=== PATIENT | female | born 2000 | race Two or more races ===

== ENCOUNTER 2025-09-15 15:39 | Outpatient (AMB) | payer BC, SELFPAY ==
--- NOTE | 2025-09-15 15:42 | PD.GSCLVISIT ---
Vital Signs - [facility] 09/15/25 15:47 Height 1.6 m Height Method Measured Weight 83.943 kg Weight Measurement Method Standing Scale BMI 32.8 BP 112/49 L Blood Pressure Source Automatic Cuff Blood Pressure Location Left Upper Arm Position Sitting Respiration 18 Pulse 80 Pulse Source Monitor Temp 97.9 F Temp Source Temporal Artery Scan Pulse Oximetry (%) 98 Oxygen Delivery Method Room Air Med/Allergies Allergies & Medications Allergies Penicillins Allergy (Verified 09/15/25 15:48) Medication Reconciliation No Known Home Medications 09/15/25 [History Confirmed 09/15/25] MA Intake Visit Data Collection New Patient or Established: Established Patient (seen at [facility] within 3 years) Seen by Clinical Staff ONLY (RN/MA): No Reason for Visit:: REFERRAL GALLSTONES Pain Present Currently: No Pain scale:: 0 Pain Scale Used: Gil-Qureshi/Numerical Turbine Technician Required: No PCP or OBGYN visit in last 3 months: Yes Hx Now: No Do You Feel Safe at Home: Yes Authorities Contacted: N/A Smoking Status Smoking Status: Never smoker Immunization / Flu Flu Vaccine in the Last 12 Months: Yes Flu Vaccine Exclusion Criteria: Already Received Past Medical History Social History SMOKING STATUS: Smoking status: Never smoker HPI HPI Narrative Laura Stallworth is a 25 yo female with no past medical history and no past surgical presenting to the clinic for evaluation for cholelithiasis. This pain began during her over a year ago and has been waxing and waning since. The nonradiating pain is located on the upper right quadrant and is a 4/10 after eating meals, although she has not paid attention as to what foods exacerbate the symptoms. She has not tried to treat her pain. After gallstones were confirmed with ultrasound, she was prescribed ursodiol which worsened her symptoms for two weeks, at which point she discontinued the medication. She is also experiencing constipation for the past few months with occasional bright red blood per rectum, but has not attempted to treat it with increased water intake and fiber supplements. ROS Review of Systems Systems Reviewed: All systems reviewed, normal except as documented Objective/Exam General Limitations: no limitations General Appearance: alert, in no apparent distress and well groomed Abdominal Abdominal exam: Present soft and normal bowel sounds; Absent guarding, rigidity or Anthony's sign Results US performed 08/14 at [facility]: gallstones, no wall thickening, CBD 2.2mm Assessment & Plan Diagnosis / Problem List (1) Symptomatic cholelithiasis: Status: Acute Assessment & Plan: 25F presenting with signs and symptoms of biliary colic. I explained that surgery is recommended due to the high likelihood of persistent symptoms and explained benefits/risk including need for conversion to open, bleeding, infection, injury to nearby structures requiring further procedures which could mean major biliary reconstruction at a tertiary hospital, as well as postoperative hernia and diarrhea. All questions were answered and patient is agreeable to proceeding Office Procedures GNS Level of Care Nursing/Assessment Patient Status: Established Patient Nursing Assessment/Reassesment: Medication Reconciliation, Update PMH in EMR and Vital Signs Coordination of Care: Education Complex Pt/Fam, Consent,records obtained, informed consent, Results/Orders obtained and Staff clarify orders Established Patient Charge Established Patient Point Assignment: 70 Established Patient Point Charge: EP Level 2 (40-75) Patient Portal Questionaires Social History Tobacco History Smoking Status: Never smoker Domestic Abuse History Do You Feel Safe at Home: Yes Review of Systems Report any current symptoms Only answer those that you have currently: Past Medical History Past Medical History Have you ever been diagnosed with any of the following:
[2025-09-15 15:47] VITALS: BP 112/49; PULSE 80; RESP 18; TEMP 36.6; O2SAT 98; BMI 32.8
== END 2025-09-15 16:22 | disposition home or self-care (01) ==
PROVIDERS: PCP Pediatrics; Referring Provider Pediatrics; Supervising Provider Surgery; Visit Provider Surgery
DX: K80.20 Calculus of gallbladder without cholecystitis without obstruction (principal)
CPT/HCPCS: 99212; G0463